=== PATIENT | male | born 1950 | race Caucasian/White ===

== ENCOUNTER 2017-04-09 15:40 | Emergency (ER) | payer MEDICARE, OTHER ==
[2017-04-09] MEDS ORDERED: HYDROmorphone 2 MG/ML SDV IVPUSH ONE (16:11)
[2017-04-09] MEDS ORDERED: Ondansetron 4 MG/2 ML SDV IVPUSH ONE (16:11)
[2017-04-09] MEDS ORDERED: Lactated Ringers 1,000 ML IV SCH (16:15)
--- NOTE | 2017-04-09 16:18 | EDM.PDOC ---
ED HPI GENERAL MEDICAL PROBLEM - General Chief Complaint: Abdominal Pain Stated Complaint: ABD PAIN Time Seen by Provider: 04/09/17 16:05 Source of Information: Reports: Patient, Old Records History Limitations: Reports: No Limitations - History of Present Illness INITIAL COMMENTS - FREE TEXT/NARRATIVE: 66 yo male presents about 1.5 hrs after the abrupt onset of severe abdominal pain associated with some nausea and one small emesis. He has chronic diarrhea with no recent changes. No fever. Pain maximum to the right of the umbilicus. Has a pHx of ascites/cirrhosis. Has a right inguinal hernia. Had endoscopy yesterday so has not eaten much in the last couple of days. Onset: Today Onset Date: 04/09/17 Onset Time: 14:30 Duration: Minutes:, Improving Location: Reports: Abdomen Quality: Reports: Sharp Severity: Moderate (Was severe for about 90 minutes.) Improves with: Reports: Other (? time) Worsens with: Reports: Other (unknown) Context: Reports: Other (Hx of ascites/cirrhosis with occasional paracentesis.) Associated Symptoms: Reports: Nausea/Vomiting. Denies: Fever/Chills Treatments DISTRIBUTION ASSOCIATE: Reports: Other (see below) (none) Lower Abdomen Pain Score (Numeric/FACES): 5 - Related Data Allergies Allergy/AdvReac Type Severity Reaction Status Date / Time No Known Allergies Allergy Verified 04/09/17 16:22 Home Meds: Home Meds Acetaminophen [Tylenol] 325 mg PO ASDIRECTED PRN 04/09/17 [History] Furosemide [Lasix] 40 mg PO BID 04/09/17 [History] Spironolactone [Aldactone] 100 mg PO DAILY 04/09/17 [History] Past Medical History Cardiovascular History: Reports: Hypertension Gastrointestinal History: Reports: Diverticulosis Genitourinary History: Reports: Renal Calculus Musculoskeletal History: Reports: Gout Endocrine/Metabolic History: Reports: Obesity/BMI 30+ Social & Family History - Tobacco Use Smoking Status *Q: Former Smoker Years of Tobacco use: 30 Packs/Tins Daily: 1 Used Tobacco, but Quit: Yes Month Tobacco Last Used: 1 YEAR AGO - Recreational Drug Use Recreational Drug Use: No ED ROS GENERAL - Review of Systems Review Of Systems: See Below Constitutional: Reports: No Symptoms HEENT: Reports: No Symptoms Respiratory: Reports: No Symptoms Cardiovascular: Reports: No Symptoms GI/Abdominal: Reports: Abdominal Pain, Diarrhea (chronic), Nausea, Vomiting. Denies: Black Stool, Bloody Stool, Constipation, Distension, Flatus, Hematemesis , Hematochezia, Melena : Reports: No Symptoms Musculoskeletal: Reports: No Symptoms Skin: Reports: No Symptoms Neurological: Reports: No Symptoms Psychiatric: Reports: No Symptoms ED EXAM, GI/ABD - Physical Exam Exam: See Below Exam Limited By: No Limitations General Appearance: Alert, WD/WN, No Apparent Distress Eyes: Bilateral: Normal Appearance Ears: Normal External Exam, Normal Canal, Hearing Grossly Normal Nose: Normal Inspection, Normal Mucosa, No Blood Throat/Mouth: Normal Inspection, Normal Lips, Normal Oropharynx, Normal Voice, No Airway Compromise Head: Atraumatic, Normocephalic Neck: Normal Inspection, Supple Respiratory/Chest: No Respiratory Distress, Lungs Clear, Normal Breath Sounds, No Accessory Muscle Use Cardiovascular: Regular Rate, Rhythm GI/Abdominal Exam: Other (Ascites present. No rebound or guarding. Moderate tenderness to the right of the umbilicus) Back Exam: Normal Inspection Extremities: Pedal Edema (Pitting edema to both legs below the knees.) Neurological: Alert, Oriented, CN II-XII Intact, Normal Cognition, No Motor/ Sensory Deficits Psychiatric: Normal Affect, Normal Mood Skin Exam: Warm, Dry, Intact, Normal Color, No Rash Lymphatic: No Adenopathy Course - Vital Signs Last Recorded V/S: Last Vital Signs Temp 36.4 C 04/09/17 18:36 Pulse 96 04/09/17 19:05 Resp 16 04/09/17 19:05 BP 89/59 L 04/09/17 19:05 Pulse Ox 98 04/09/17 19:05 - Orders/Labs/Meds Labs: Laboratory Tests 04/09/17 04/09/17 04/09/17 Range/Units 16:25 16:25 18:19 WBC 11.5 (4.5-12.0) X10-3/uL RBC 3.95 L (4.30-5.75) x10(6)uL Hgb 14.2 (11.5-15.5) g/dL Hct 41.0 (30.0-51.3) % MCV 103.7 H (80-96) fL MCH 35.9 H (27.7-33.6) pg MCHC 34.6 (32.2-35.4) g/dL RDW 15.3 (11.5-15.5) % Plt Count 167 (125-369) X10(3)uL Sodium 130 L (135-145) mmol/L Potassium 4.6 (3.5-5.3) mmol/L Chloride 101 (100-110) mmol/L Carbon Dioxide 21 L (23-29) mmol/L BUN 28 H D (8-23) mg/dL Creatinine 1.3 (0.6-1.3) mg/dL Est Cr Clr Drug Dosing 52.62 mL/min Estimated GFR (MDRD) 55 L (>60) BUN/Creatinine Ratio 21.5 H (9-20) Glucose 115 (80-116) mg/dL Calcium 8.5 L (8.6-10.2) mg/dL Amylase 79 (28-100) U/L Urine Color [place] (YELLOW) Urine Appearance Slightly cloudy (CLEAR) Urine pH 5.0 (5.0-6.5) Ur Specific [place] 1.020 (1.010-1.025) Urine Protein 30 H (NEGATIVE) mg/dL Urine Glucose (UA) Normal (NEGATIVE) mg/dL Urine Ketones 15 H (NEGATIVE) mg/dL Urine Occult Blood Trace (NEGATIVE) Urine Nitrite Positive H (NEGATIVE) Urine Bilirubin Moderate H (NEGATIVE) Urine Urobilinogen 8 H (NEGATIVE) mg/dL Ur Leukocyte Esterase Moderate H (NEGATIVE) Urine RBC 0-5 (0) Urine WBC 5-10 (0) Ur Squamous Epith Cells Occasional (NS,R,O) Calcium Oxalate Crystal Few H (NS) Other Crystals Few H (NS) Urine Bacteria Moderate H (NS) Hyaline Casts Moderate H (NS) Meds: Medications Discontinued Medications Generic Name Dose Route Start Last Admin Trade Name Freq PRN Reason Stop Dose Admin Hydrocodone Bitart/Acetaminophen 8 tab 04/09/17 18:56 Yolyn 325-5 Mg PO 04/09/17 18:57 .STK-MED ONE Hydromorphone HCl 0.5 mg 04/09/17 16:11 04/09/17 16:58 Dilaudid IVPUSH 04/09/17 16:12 0.5 mg ONETIME ONE Administration Lactated Ringer's 1,000 mls @ 125 mls/hr 04/09/17 16:15 04/09/17 16:45 Ringers, Lactated IV 125 mls/hr ASDIRECTED HUGH Administration Ondansetron HCl 4 mg 04/09/17 16:11 04/09/17 16:54 Zofran IVPUSH 04/09/17 16:12 4 mg ONETIME ONE Administration Ondansetron HCl 16 mg 04/09/17 18:56 Zofran Odt PO 04/09/17 18:57 .STK-MED ONE Sodium Chloride 10 ml 04/09/17 16:41 04/09/17 16:44 Saline Flush FLUSH 10 ml ASDIRECTED PRN Administration Keep Vein Open Departure - Departure Time of Disposition: 18:40 Disposition: Home, Self-Care 01 Condition: Fair Clinical Impression: Mild dehydration Abdominal pain Qualifiers: Abdominal location: unspecified location Qualified Code(s): R10.9 - Unspecified abdominal pain Diarrhea Qualifiers: Diarrhea type: unspecified type Qualified Code(s): R19.7 - Diarrhea, unspecified - Discharge Information Referrals: Nat Egan NP [Primary Care Provider] - Forms: ED Department Discharge Additional Instructions: Take Zofran every 6 hrs as needed for nausea. Take Yolyn 1-2 every 4-6 hrs as needed for pain relief. Eat a light diet tonight and then advance your diet slowly as tolerated. Return as needed.
[2017-04-09] MEDS ORDERED: Sodium Chloride 0.9% 10 ML Syringe FLUSH PRN (16:41)
[2017-04-09] MEDS ORDERED: Ondansetron 4 MG Tab.DIS PO ONE (18:56)
[2017-04-09] MEDS ORDERED: Acetaminophen/HYDROcodone 325-5 MG Tab PO ONE (18:56)
[2017-04-09 19:06] VITALS: BP 89/59
== END 2017-04-09 19:06 | disposition home or self-care (01) ==
LOC: FB.ED 15:40
DX: E86.0 Dehydration (principal); R10.9 Unspecified abdominal pain; R19.7 Diarrhea, unspecified; R18.8 Other ascites; E66.9 Obesity, unspecified; I10 Essential (primary) hypertension; Z87.442 Personal history of urinary calculi; Z87.891 Personal history of nicotine dependence
CPT/HCPCS: 36415; 80048; 81001; 82150; 85027; 87086; 96361; 96374; 96375; 99284; A9270; J1170; J2405; J7050; J7120